=== PATIENT | male | born 1980 | race Caucasian/White ===

== ENCOUNTER 2017-04-15 14:45 | Emergency (ER) | payer OTHER ==
[~2017-04-15] VITALS: Ht 188 cm; Wt 149.5 kg
[2017-04-15 15:08] VITALS: BP 129/72
[2017-04-15] MEDS ORDERED: NORCO 5/3251 TABLET PO (15:37)
[2017-04-15] MEDS ORDERED: SILVADENE20 GM TP (15:37)
== END 2017-04-15 15:55 | disposition home or self-care (01) ==
LOC: EME 14:45
PROC: 2W2JX4Z Dressing of Right Finger using Bandage (ICD-10-PCS; principal; 2017-04-15)
DX: T23.231A Burn of second degree of multiple right fingers (nail), not including thumb, initial encounter (principal); T31.0 Burns involving less than 10% of body surface; X19.XXXA Contact with other heat and hot substances, initial encounter
CPT/HCPCS: 99281; 99284